=== PATIENT | female | born 1970 | race Caucasian/White ===

== ENCOUNTER 2021-09-20 18:24 | Emergency (ER) | payer MEDICAID ==
[~2021-09-20] VITALS: Ht 160 cm; Wt 75.0 kg
[2021-09-20 18:39] VITALS: BP 123/78
== END 2021-09-20 19:27 | disposition left against medical advice (07) ==
LOC: ER 18:24
DX: Z53.21 Procedure and treatment not carried out due to patient leaving prior to being seen by health care provider (principal)
CPT/HCPCS: 99281

== ENCOUNTER 2021-12-25 20:38 | Emergency (ER) | payer MEDICAID, OTHER ==
[~2021-12-25] VITALS: Ht 157.5 cm; Wt 84.2 kg
[2021-12-25 22:10] VITALS: BP 135/60
[2021-12-26] MEDS ORDERED: BENZ1LOZ60 MT (00:51)
[2021-12-26] MEDS ORDERED: GUAI-741 MT (00:51)
== END 2021-12-26 01:18 | disposition home or self-care (01) ==
LOC: ER 20:38
DX: J06.9 Acute upper respiratory infection, unspecified (principal); Z20.822 Contact with and (suspected) exposure to COVID-19
CPT/HCPCS: 71045; 87070; 87426; 87430; 87804; 99284; C9803